=== PATIENT | female | born 1985 | race American Indian/Alaskan Native ===

== ENCOUNTER 2019-01-10 20:13 | Emergency (ER) | payer MEDICAID ==
[~2019-01-10] VITALS: Ht 170.2 cm; Wt 75.0 kg
[2019-01-10] MEDS ORDERED: BENZ-16 PO (20:58)
[2019-01-10] MEDS ORDERED: AZIT-63 PO (20:58)
[2019-01-10] MEDS ORDERED: ALBU8.5H8 INH (20:58)
[2019-01-10 22:09] VITALS: BP 107/80
== END 2019-01-10 21:03 | disposition home or self-care (01) ==
LOC: ER 20:14
DX: R05 Cough (principal); R06.00 Dyspnea, unspecified; J45.909 Unspecified asthma, uncomplicated; Z79.899 Other long term (current) drug therapy; Z79.2 Long term (current) use of antibiotics; Z87.09 Personal history of other diseases of the respiratory system
CPT/HCPCS: 71046; 99283

== ENCOUNTER 2020-06-29 11:28 | Day surgery (SDC) | payer MEDICAID ==
[2020-06-23 10:27] LABS: CLARITY,URINE CLEAR (Clear); COLOR,URINE YELLOW (Yellow); GLUCOSE, URINE NEGATIVE (Neg); KETONES,URINE NEGATIVE (Neg); LEUKOCYTE ESTERASE ,URINE NEGATIVE (Neg); NITRITES, URINE NEGATIVE (Neg); OCCULT BLOOD,URINE NEGATIVE (Neg); PROTEIN,URINE NEGATIVE (Neg); UROBILINOGEN,URINE 0.2 E.U/dL (0.2-1.0)
[2020-06-23 10:29] LABS: BASOPHILS % (AUTO) 0.4 % (0-1); EOSINOPHILS # (AUTO) 0.3 X10'3 (0-0.9); LYMPHOCYTES # (AUTO) 1.2 X10'3 (1.1-4.8); LYMPHOCYTES % (AUTO) 20.4 % (21-51); MEAN CORPUSCULAR HEMOGLOBIN 32.5 PG (27.0-31.0); MEAN CORPUSCULAR HGB CONC 33.5 g/dL (33.0-36.5); MEAN CORPUSCULAR VOLUME 97.1 FL (78-98); MEAN PLATELET VOLUME 9.2 FL (7.4-10.4); MONOCYTES # (AUTO) 0.4 X10'3 (0-0.9); MONOCYTES % (AUTO) 7.4 % (2-12); NEUTROPHILS # (AUTO) 3.9 X10'3 (1.8-7.7); NEUTROPHILS % (AUTO) 66.8 % (42-75); PRE OP HEMATOCRIT 43.6 % (35.0-45.0); PRE OP HEMOGLOBIN 14.6 g/dL (12.0-16.0); PRE OP PLATELET COUNT 210 X10'3 (140-440); RED BLOOD COUNT 4.49 X10'6 (4.20-5.60); RED CELL DISTRIBUTION WIDTH 12.9 % (11.5-14.5)
[2020-06-23 10:31] LABS: UA COLLECTION TYPE CLN CATCH MIDSTREAM
[2020-06-23 10:43] LABS: HCG SERUM QL NEGATIVE
[2020-06-23 10:44] LABS: ALBUMIN 3.4 G/DL (3.4-5.0); ALBUMIN/GLOBULIN RATIO 0.9 (1.1-1.5); ALKALINE PHOSPHATASE 70 IU/L (46-116); BLOOD UREA NITROGEN 17 MG/DL (7-18); BUN/CREATININE RATIO 22.7 (6.6-38.0); CALCIUM 8.9 MG/DL (8.5-10.1); CHLORIDE 106 MMOL/L (99-107); CREATININE 0.75 MG/DL (0.40-0.90); PRE OP ALT 34 U/L (30-65); PRE OP ANION GAP 7 (8-16); PRE OP AST 21 U/L (10-37); PRE OP BILIRUB, TOTAL 1.1 MG/DL (0.0-1.0); PRE OP GLUCOSE 74 MG/DL (70-104); PRE OP POTASSIUM 3.9 MMOL/L (3.4-5.1); PRE OP SODIUM 143 MMOL/L (135-145); TOTAL CARBON DIOXIDE 30.3 MMOL/L (24-32); TOTAL PROTEIN 7.2 G/DL (6.4-8.2); eGFR 88 ML/MIN
[2020-06-29] VITALS (8 sets, daily range): BP systolic 110–124; BP diastolic 75–90
[~2020-06-29] VITALS: Ht 170.2 cm; Wt 67.3 kg
[~2020-06-29 11:28] MED LIST: ESCI5TAB PO; INDO-12 PO; albuterol 2.5 MG/3 ML nebule NEB ONE; ceFOXitin 2GM-NS 100mL ADDvant 100 ML IV ONE; famotidine 20mg tablet PO ONE; ringers solution, lacted 1,000 ML IV SCH
[2020-06-29] MEDS ORDERED: BUPIVAcaine/PF 2.5 mg/ml (0.25%) 30ml vial ONE ×2 (12:59→14:45)
[2020-06-29] MEDS ORDERED: morphine 4 MG/ML inj SYRINge IV PRN (13:05)
[2020-06-29] MEDS ORDERED: ringers solution, lacted 1,000 ML IV SCH (13:05)
[2020-06-29] MEDS ORDERED: morphine 2 MG/ML inj. syringe IV PRN (13:05)
[2020-06-29] MEDS ORDERED: ondansetron/PF 4mg/2ml inj IV PRN (13:05)
[2020-06-29] MEDS ORDERED: meperidine/PF 25mg/ml syringe IV PRN ×3 (13:05)
[2020-06-29] MEDS ORDERED: proCHLORperazine 10 MG/2 ml inj IV PRN (13:05)
[2020-06-29] MEDS ORDERED: dexamethasone sod phosphate 10mg/ml inj ONE (14:47)
[2020-06-29] MEDS ORDERED: sevoflurane 250ml liquid IH ONE (14:47)
[2020-06-29] MEDS ORDERED: midazolam 2 mg/2 ml injection ONE (14:50)
[2020-06-29] MEDS ORDERED: fentaNYL/PF 50MCG/1 ML 2ML syringe ONE (14:50)
[2020-06-29] MEDS ORDERED: propofol inj 20 ML IV ONE (14:54)
[2020-06-29] MEDS ORDERED: rocuronium 10mg/ml inj IV ONE (15:28)
[2020-06-29] MEDS ORDERED: glycopyrrolate 0.2mg/ml inj ONE (15:28)
[2020-06-29] MEDS ORDERED: ondansetron/PF 4mg/2ml inj ONE (15:28)
[2020-06-29] MEDS ORDERED: BUPIVAcaine/PF 2.5 mg/ml (0.25%) 30ml vial IJ ONE (15:36)
[2020-06-29] MEDS ORDERED: sod chloride 0.9% 10ml flush syringe IV ONE (15:36)
[2020-06-29] MEDS ORDERED: neostigmine methylsulfate 1 MG/ML 10ml vial ONE (15:42)
--- NOTE | 2020-06-29 15:45 | NUR ---
ADMITTED TO PACU FROM OR ACCOMPANIED BY ANESTHESIA. INTIAL PHYSICAL ASSESSMENT DONE AND RECORDED. REPORT RECEIVED FROM ANESTHESIA.
[2020-06-29] MEDS ORDERED: HYDROcodone/acetaminophen 10/325mg tab PO ONE (16:15)
--- NOTE | 2020-06-29 16:45 | NUR ---
DISCHARGE CRITERIA MET, DISCHARGE INSTRUCTIONS GIVEN, DEMONSTRATES VERBAL UNDERSTANDING. DISCHARGED HOME IN GOOD CONDITION
== END 2020-06-29 16:45 | disposition home or self-care (01) ==
LOC: PAS 11:28
PROVIDERS: ATTEND Obstetrics & Gynecology Obstetrics
DX: Z30.2 Encounter for sterilization (principal); Z20.822 Contact with and (suspected) exposure to COVID-19; F17.210 Nicotine dependence, cigarettes, uncomplicated; J45.909 Unspecified asthma, uncomplicated; F41.9 Anxiety disorder, unspecified; F32.9 Major depressive disorder, single episode, unspecified; D64.9 Anemia, unspecified; G43.909 Migraine, unspecified, not intractable, without status migrainosus; Z98.890 Other specified postprocedural states; Z79.899 Other long term (current) drug therapy; Z80.41 Family history of malignant neoplasm of ovary; Z80.2 Family history of malignant neoplasm of other respiratory and intrathoracic organs; Z80.49 Family history of malignant neoplasm of other genital organs
CPT/HCPCS: 36415; 58671; 71046; 80053; 81003; 82948; 84703; 85025; 86885; 86900; 86901; 87426; 87635; 93005; A4264; J0694; J1100; J2250; J2405; J2704; J2710; J3010; J3490; A4618; A7000; J7120